=== PATIENT | male | born 1950 | race Caucasian/White ===

== ENCOUNTER 2018-01-24 12:05 | Observation (INO) | payer MEDICARE ==
[~2018-01-24] VITALS: Ht 177.8 cm; Wt 99.5 kg
[2018-01-24] MEDS ORDERED: ENOXAPARIN SODIUM INJ 100 MG/ML SYR SC STA (12:30)
[2018-01-24] MEDS ORDERED: MORPHINE SULFATE 2 MG/ML SYR IV STA (12:30)
[2018-01-24] MEDS ORDERED: SODIUM CHLORIDE 0.9% 1000ML 1,000 ML IV STA (12:30)
[2018-01-24] MEDS ORDERED: PANTOPRAZOLE 40 MG 10ML VIAL IV STA (12:30)
[2018-01-24] MEDS ORDERED: ASPIRIN 81 MG CHEW TAB PO STA (12:30)
[2018-01-24] MEDS ORDERED: ONDANSETRON HCL INJ 2 MG/ML VIAL IV STA (12:30)
[2018-01-24] MEDS ORDERED: METFORMIN HCL500 MG PO (12:42)
[2018-01-24] MEDS ORDERED: LOW DOSE ASPIRI81 MG PEG (12:42)
[2018-01-24] MEDS ORDERED: AMLODIPINE BESYL5 MG PO (12:42)
[2018-01-24] MEDS ORDERED: BENAZEPRIL HCL10 MG PO (12:42)
[2018-01-24] MEDS ORDERED: CARVEDILOL3.125 MG PO (12:42)
[2018-01-24] MEDS ORDERED: LANSOPRAZOLE30 MG PEG (12:42)
[2018-01-24 12:56] LABS: BASOPHILS % 0.4 % (0.0-1.0); EOSINOPHILS # (AUTO) 0.2 (0.0-0.4); EOSINOPHILS % 3.2 % (0.0-6.0); HEMATOCRIT 41.7 % (38.2-49.6); HEMOGLOBIN 13.7 g/dL (14.0-18.0); LYMPHOCYTES # (AUTO) 1.3 (1.0-3.2); MEAN CORPUSCULAR HEMOGLOBIN 29.1 pg (28-32); MEAN CORPUSCULAR HGB CONC 32.9 g/dL (31-35); MEAN CORPUSCULAR VOLUME 88.7 fL (81-99); MONOCYTES # (AUTO) 0.4 (0.2-0.8); MONOCYTES % 7.8 % (4.4-11.3); NEUTROPHILS # (AUTO) 3.7 (2.1-6.9); NEUTROPHILS % 65.2 % (38.7-80.0); PLATELET COUNT 229 x10e3/uL (140-360)
--- NOTE | 2018-01-24 12:57 | Diagnostic Imaging Report ---
EXAM: XR CHEST 1 VIEW DATE: 01/24/2018 12:30 PM INDICATION: Pain COMPARISON: None FINDINGS: Lines and Tubes: None Heart and Mediastinum: No acute findings. Lungs and Pleura: Minimal opacity left lung base. Bones and Soft Tissues: No acute findings. IMPRESSION: 1. Left basilar atelectasis versus pneumonia. Signed by: Dr. Tomasz Nayak MD on 01/24/2018 12:54 PM
[2018-01-24] MEDS ORDERED: DEXTROSE 50% SYRINGE 50 ML IV PRN (13:00)
[2018-01-24] MEDS ORDERED: MORPHINE SULFATE 2 MG/ML SYR IV PRN (13:00)
[2018-01-24] MEDS ORDERED: ENOXAPARIN SODIUM INJ 100 MG/ML SYR SC SCH (13:00)
[2018-01-24] MEDS ORDERED: ONDANSETRON HCL INJ 2 MG/ML VIAL IV PRN (13:00)
[2018-01-24] MEDS ORDERED: FAMOTIDINE 20 MG/2 ML VIAL IV ONE (13:00)
[2018-01-24 13:01] LABS: INR 1.05; PROTHROMBIN TIME 12.9 seconds (11.9-14.5)
[2018-01-24 13:02] LABS: PARTIAL THROMBOPLASTIN TIME 36.9 seconds (23.8-35.5)
[2018-01-24 13:04] LABS: BILIRUBIN,URINE NEGATIVE (NEGATIVE); CLARITY,URINE CLEAR (CLEAR); COLOR,URINE YELLOW (YELLOW); KETONES,URINE NEGATIVE (NEGATIVE); LEUKOCYTE ESTERASE ,URINE NEGATIVE (NEGATIVE); NITRITE,URINE NEGATIVE (NEGATIVE); PROTEIN,URINE DIPSTICK NEGATIVE (NEGATIVE); URINE UROBILINOGEN 0.2 mg/dL (0.2 - 1)
[2018-01-24 13:11] LABS: ALANINE AMINOTRANSFERASE 18 IU/L (0-55); ALBUMIN/GLOBULIN RATIO 1.2 (0.8-2.0); ALKALINE PHOSPHATASE 75 IU/L (40-150); ANION GAP 14.1 mmol/L (8-16); BLOOD UREA NITROGEN 18 mg/dL (7-26); BUN/CREATININE RATIO 21 (6-25); CALCIUM 9.8 mg/dL (8.4-10.2); CARBON DIOXIDE 26 mmol/L (22-29); CHLORIDE 105 mmol/L (98-107); CREATINE KINASE 51 IU/L (30-200); CREATININE, SERUM 0.84 mg/dL (0.72-1.25); EST GLOMERULAR FILTRATION RATE > 60 ML/MIN (60-); GLUCOSE 107 mg/dL (74-118); LIPASE 11 U/L (8-78); MAGNESIUM 1.8 MG/DL (1.3-2.1); POTASSIUM 4.1 mmol/L (3.5-5.1); SODIUM 141 mmol/L (136-145)
--- OUTSIDE RECORDS SUMMARY | 2018-01-24 13:20 | XMS REPORT ---
Author Author [facility] Address Unknown Phone Unavailable Care Team Providers Care Plastic Roller Name Role Phone LETA PEDRAZA Unavailable Unavailable Problems This patient has no known problems. Allergies, Adverse Reactions, Alerts This patient has no known allergies or adverse reactions. Medications This patient has no known medications. Results Test Description Test Time Test Comments Text Results Atomic Results Result Comments CHEST SINGLE (PORTABLE) [place] [id number] Patient Name: BRIEN SPRINGER MR #: [id number] : 1950 Age/Sex: 67/M Req #: [id number] Adm Physician: Ordered by: LETA PEDRAZA MD, MD Report #: [id number] Location: ER Room/Bed: Procedure: [id number] DX/CHEST SINGLE (PORTABLE) Exam Date: 01/24/18 Exam Time: 1245 REPORT STATUS: Signed EXAM: XR CHEST 1 VIEW DATE: 01/24/2018 12:30 PM INDICATION: Pain COMPARISON: None FINDINGS: Lines and Tubes: None Heart and Mediastinum: No acute findings. Lungs and Pleura: Minimal opacity left lung base. Bones and Soft Tissues: No acute findings. IMPRESSION: 1. Left basilar atelectasis versus pneumonia. Signed by: Dr. Tomasz Carroll MD on 01/24/2018 12:54 PM Dictated By: TOMASZ CARROLL MD 125 Transcribed By: GENNA on 01/24/181253 COPY TO: LETA PEDRAZA
[2018-01-24 13:30] LABS: THYROID STIMULATING HORMONE 1.471 uIU/mL (0.350-4.940)
--- NOTE | 2018-01-24 14:21 | Diagnostic Imaging Report ---
EXAM: US GALLBLADDER DATE: 01/24/2018 12:39 PM INDICATION: Pain COMPARISON: None FINDINGS: Overlying bowel gas obscures detail. Liver measures up proximally 17.2 cm with no distinct focal mass. Echotexture the liver is increased. Pancreatic evaluation nondiagnostic. Aorta not adequately evaluated. Right kidney measures 11.1 cm. Simple appearing 2.4 cm cyst present midportion. No hydronephrosis. Gallbladder is not distended. No gallbladder wall thickening or pericholecystic fluid identified. There is a shadowing stone in the region of the gallbladder neck. Common duct within normal limits at 0.6 cm. IMPRESSION: Shadowing gallstone gallbladder neck without distinct sonographic evidence of cholecystitis. Clinical and laboratory correlation recommended. Hepatic steatosis. Signed by: Dr. Tomasz Nayak MD on 01/24/2018 2:17 PM
[2018-01-24 15:30] VITALS: BP 180/79
[2018-01-24] MEDS ORDERED: ENOXAPARIN SODIUM INJ 100 MG/ML SYR SC ONE (15:30)
[2018-01-24] MEDS ORDERED: LEVOFLOXACIN 500MG/D5W 100ML 100 ML IV SCH (15:30)
[2018-01-24] MEDS ORDERED: CLOPIDOGREL BISULFATE 75 MG TAB PO ONE (15:30)
[2018-01-24] MEDS: INSULIN REGULAR, HUMAN 100 UNIT/1 ML 3ML VIAL SQ SCH ×2 (16:30→19:59)
[2018-01-24 16:36] VITALS: BP 187/79
--- NOTE | 2018-01-24 16:46 | History and Physical ---
Patient belongs to [facility], [place]. HOSPITAL COVERING PHYSICIAN: Dr. Roberts. HISTORY OF PRESENT ILLNESS: Mr. Hoskins is a pleasant 67-year-old gentleman with chest pain. Patient has been having low-level chest pains for years, he says. Usually, the pain is associated with eating, often onset 5 to 15 minutes after eating, a squeezing kind of pain, but it is usually low in intensity; however, the last 3 days, the patient has sited that the pain is significantly more intense. He still wonders if it is modified by eating, although he does not know if there are any specific kinds of foods that make it worse. The pain is in the subxiphoid area. He rarely has any needs to come to the physician, but this time he felt worried and came to the hospital. In the emergency room, no ST elevation RI was noted. Initial troponin was normal. BNP was normal. Patient, however, due to the worse ever and intense nature of this symptomatology, was recommended for inpatient observation. PAST MEDICAL HISTORY: Hypertension, diabetes, and possible hyperlipidemia in the past. MEDICATIONS: Outside medications include Norvasc, aspirin, benazepril, carvedilol, lansoprazole, and metformin. ALLERGIES: No known drug allergies. SOCIAL HISTORY: No smoking, no drinking, and no drugs. Patient is retired. 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 FAMILY HISTORY: Noncontributory. REVIEW OF SYSTEMS GENERAL: No weight changes. OPHTHALMOLOGIC: No double vision. ENT: No dry mouth. LUNGS: No asthma. CARDIOVASCULAR: No history of any cardiac workup. GI: No constipation. : No blood in urine. MUSCULOSKELETAL: Moderate arthritis. DERMATOLOGIC: No rashes. LABORATORY AND DIAGNOSTIC DATA: White count 5.6, 14 hemoglobin, 42 hematocrit, and 229 platelets. Potassium 4.1, 26 bicarbonate, 18 BUN, and 0.8 creatinine. LFTs unremarkable. Albumin 4.0. TSH 1.4. Chest x-ray, mildly elevated left hemidiaphragm, possible atelectasis versus pneumonitis. Gallbladder ultrasound with shadowing gallbladder lesions, possible gallstone without sonographic evidence of cholecystitis. IMPRESSION AND PLAN 1. Atypical chest pain: Treated as acute coronary syndrome. 2. Chest pain, possible associated with eating, rule out gallstone or cholecystitis. 3. Hypertension. 4. Diabetes. 5. Obesity. 6. Positive family history of early coronary artery disease. Continue cardiac enzymes. Patient will also need serial EKGs. Consideration for conservative medical management, stress test versus cardiac catheterization based on findings. Check echo and look for wall motion abnormalities. Patient will have follow up of the pain. Consideration for outpatient gallbladder evaluation, but if pain continues and does not remit, he may need further inpatient gallbladder evaluation if his heart is found to be in good standing. Continue blood pressure and diabetes maintenance. Thank you very much Dr. Roberts and Pema for allowing me a chance to participate in the care of Mr. Hoskins. Do not hesitate to contact me if I can help in anyway. Job#: [id number] PA
[2018-01-24] MEDS: CARVEDILOL 12.5 MG TAB PO SCH (17:00)
[2018-01-24 17:03] VITALS: BP 187/79
[2018-01-24 18:18] LABS: CREATINE KINASE 48 IU/L (30-200)
[2018-01-24] MEDS ORDERED: SODIUM CHLORIDE 0.9% 250ML 250 ML ONE (19:29)
[2018-01-24 20:00] VITALS: BP 156/80
[2018-01-24 21:42] VITALS: BP 156/80
[2018-01-25] VITALS: BP 139/97
[2018-01-25 00:52] LABS: CREATINE KINASE 39 IU/L (30-200)
--- NOTE | 2018-01-25 00:52 | Consultation ---
DATE OF CONSULTATION: January 24, 2018 CARDIAC CONSULTATION REASON FOR CONSULTATION: Chest pain. HISTORY: A 67-year-old gentleman who is known with hypertension for more than 2 years as well as hypercholesterolemia. He is diabetic since 2010. He is followed at [facility]. For the last few weeks, he is having "lower retrosternal pressure type of chest pain." Interestingly, worse with food, but when he does activity, he feels better. However, for the last 3 or 4 days, he is having it continuously and more repetitively. He cannot describe it, but it is pressure-like in nature. It is retrosternal, radiating to his back. There is no nausea, no vomiting, no hematemesis, no melena. He does not do vigorous activity, but he claims if he stands up and walk a little bit, it will get better. However, today it was more severe. [facility] and they advised him to present directly to the emergency room. In the emergency room, he was seen by Dr. Rodriguez, started him on Lovenox and cardiac consultation is obtained. I visited with the patient who is describing above symptoms. There is no history of orthopnea or paroxysmal nocturnal dyspnea. There is no history of syncope or presyncope. REVIEW OF SYSTEMS CARDIAC: As per acute illness. PULMONARY: No cough. No hemoptysis. GI: No hematemesis. No melena. No nausea. No vomiting. No definite GERD symptoms, although he did have for some time in the past some GERD symptoms. HEMATOLOGICAL: No easy bruising or bleeding. : No hematuria. No dysuria. MUSCULOSKELETAL. No aches. No pain. GENERAL: No fever. No chills. SOCIAL HISTORY: He is . He is a nonsmoker. Social alcohol drinker. He is retired from [employer]. HOME MEDICATIONS 1. Metformin 500 mg twice a day. 2. Coreg 6.25 mg twice a day. 3. Amlodipine/benazepril 5 and 20, one tablet a day. 4. Aspirin 81 mg a day. 5. Prevacid 30 mg a day. 6. Eye drops. ALLERGIES: NONE. PAST MEDICAL HISTORY 1. Hypertension. 2. Diabetes mellitus. 3. Hypercholesterolemia. 4. Right eye cataract surgery complicated by "dryness of the eyes." FAMILY HISTORY: Father of complications of diabetes at age 73. Mother had myocardial infarction. She was diabetic. She of chronic renal failure and complications of diabetes. All 3 brothers are diabetic and one of them had CVA and another one with PCI at young age. One sister is hypertensive. Two healthy twin daughters. PHYSICAL EXAMINATION VITALS: Height 6 feet, weight of 230 pounds, blood pressure 140/80, heart rate of 60, respiratory rate of 18, and temperature of 98 Fahrenheit. HEENT: Pupils are reactive. NECK: No elevation of jugular venous pulsation. No bruit. CHEST: Clear to auscultation and percussion. HEART: PMI 5th left intercostal space. Normal 1st and 2nd heart sounds. ABDOMEN: Soft. EXTREMITIES: No cyanosis, no clubbing, and no edema. NEUROLOGIC: Nonfocal. LAB DATA: Sodium of 141, potassium 4.1, BUN 15, creatinine 0.84, and glucose of 107. TSH of 1.47, PT of 12.9, PTT of 37 seconds. His first set of cardiac enzymes normal. EKG showed no acute changes. IMPRESSIONS 1. Chest pain, worry for unstable coronary syndrome pending myocardial infarction. 2. Hypertension. 3. Diabetes mellitus. 4. Hypercholesterolemia. 5. Strong family history of coronary artery disease. PLAN: Lengthy discussion with the patient and his . I recommended for him to take the Lovenox ordered by the emergency room physician. I recommend serial cardiac enzymes. I have recommended beta pino and Plavix and aspirin. Patient in the past had 1 statin which caused a little bit elevation of liver function tests; so, he is not eager to start statin. In fact, patient is not eager to do anything at this time point. He wants he got stomach problem and to go home. Differential diagnosis explained. Second and 3rd cardiac enzymes to be done. Depending on his 2nd cardiac enzyme results on his symptoms, further steps to be done. Options are discussed at length and explained to the patient and his . Job#: [id number] CF
[2018-01-25 04:00] VITALS: BP 146/68
[2018-01-25 06:52] LABS: BASOPHILS % 0.2 % (0.0-1.0); EOSINOPHILS # (AUTO) 0.2 (0.0-0.4); EOSINOPHILS % 3.7 % (0.0-6.0); HEMATOCRIT 39.6 % (38.2-49.6); HEMOGLOBIN 13.1 g/dL (14.0-18.0); LYMPHOCYTES # (AUTO) 1.4 (1.0-3.2); LYMPHOCYTES % 28.5 % (18.0-39.1); MEAN CORPUSCULAR HGB CONC 33.1 g/dL (31-35); MEAN CORPUSCULAR VOLUME 87.8 fL (81-99); MONOCYTES # (AUTO) 0.4 (0.2-0.8); MONOCYTES % 7.6 % (4.4-11.3); NEUTROPHILS # (AUTO) 2.9 (2.1-6.9); NEUTROPHILS % 59.6 % (38.7-80.0); PLATELET COUNT 202 x10e3/uL (140-360); RED BLOOD COUNT 4.51 x10e6/uL (4.3-5.7)
[2018-01-25 07:25] LABS: ALANINE AMINOTRANSFERASE 16 IU/L (0-55); ALBUMIN 3.5 g/dL (3.5-5.0); ALBUMIN/GLOBULIN RATIO 1.2 (0.8-2.0); ALKALINE PHOSPHATASE 67 IU/L (40-150); ANION GAP 11.3 mmol/L (8-16); BLOOD UREA NITROGEN 14 mg/dL (7-26); BUN/CREATININE RATIO 16 (6-25); CALCIUM 9.7 mg/dL (8.4-10.2); CARBON DIOXIDE 31 mmol/L (22-29); CHLORIDE 102 mmol/L (98-107); CHOL/HDL RATIO 5.1 (3.9-4.7); CHOLESTEROL 200 MD/DL (0-199); CREATININE, SERUM 0.88 mg/dL (0.72-1.25); EST GLOMERULAR FILTRATION RATE > 60 ML/MIN (60-); GLUCOSE 100 mg/dL (74-118); HDL CHOLESTEROL 39 MG/DL (40-60); LDL CHOLESTEROL 124 MG/DL (60-130); MAGNESIUM 1.8 MG/DL (1.3-2.1); PHOSPHORUS 3.1 MG/DL (2.3-4.7); POTASSIUM 4.3 mmol/L (3.5-5.1); SODIUM 140 mmol/L (136-145); TRIGLYCERIDES 183 MG/DL (0-149)
[2018-01-25] MEDS: INSULIN REGULAR, HUMAN 100 UNIT/1 ML 3ML VIAL SQ SCH ×3 (07:30→15:41)
[2018-01-25 07:50] LABS: CREATINE KINASE 34 IU/L (30-200)
[2018-01-25 07:53] VITALS: BP 129/61
[2018-01-25] MEDS: CARVEDILOL 12.5 MG TAB PO SCH (08:00)
[2018-01-25] MEDS ORDERED: ASPIRIN 81 MG ENTERIC COATED PO SCH (09:00)
[2018-01-25] MEDS ORDERED: PANTOPRAZOLE 40 MG 10ML VIAL IV SCH (09:00)
--- NOTE | 2018-01-25 14:10 | Cardiology Report ---
DATE OF STUDY: NUCLEAR CARDIAC STRESS TEST TECHNICAL DETAILS: This was a nuclear stress test, resting stress protocol. For the stress part, patient had Robert protocol. For the resting myocardial perfusion, patient given 11 millicuries of Myoview. Half an hour after injection, proper scanning and SPECT imaging were done. For the stress part, patient received 31 millicuries of Myoview at peak exercise, and after half an hour proper scanning and SPECT imaging were done. Patient tolerated the stress test. There were no issues and no complications. RESULTS A. Cardiac EKG stress test. The protocol is Robert with target heart rate of 128 per minute. 1. Patient exercised for a total of 7 minutes 31 seconds. 2. Myoview given at 6 minutes 34 seconds into exercise at peak heart rate of 128 per minute. 3. Heart rate increased from 55 to 132 per minute. 4. Blood pressure increased from 140/70 to 170/60. 5. No EKG changes. 6. No chest pain. Impression: Negative EKG cardiac stress test. B. Nuclear stress test. 1. Myocardial perfusion. a. Resting images. Resting image shows smooth distribution of isotope with the exception of mild decreased uptake in the inferior segment. b. Exercise nuclear stress test shows smooth distribution in all segments with no abnormality in the uptake. Conclusion: Normal myocardial perfusion imaging. 2. Segmental wall motion: There was normal segmental wall motion in all segments with no segmental wall motion abnormality. 3. Heart volume: End-diastolic volume of 83 and systolic volume of 26 with left ventricular ejection fraction of 69%. IMPRESSION 1. Negative cardiac stress test by electrocardiogram criteria. 2. Negative cardiac stress test by perfusion criteria. 3. Normal left ventricular systolic function with no segmental wall motion abnormality, left ventricular ejection fraction of 69%. 4. In conclusion, low risk cardiac stress test. Limitations are discussed and explained. Job#: [id number] EV [email or web address]
[2018-01-25 15:03] VITALS: BP 138/67
[2018-01-25 15:30] VITALS: BP 138/67
--- NOTE | 2018-01-25 17:05 | Discharge Summary ---
PRIMARY CARE DOCTOR: Dr. Boo Abdullahi FINAL DIAGNOSIS: Noncardiac chest pain. SECONDARY DIAGNOSES 1. Cholelithiasis. 2. Hypertension. 3. Diabetes. 4. Hyperlipidemia. CONE OPERATOR: Dr. Hanks, cardiology. PROCEDURES/STUDIES PERFORMED: Stress test. HISTORY: Per H and P. HOSPITAL COURSE: The patient was ruled out for acute myocardial infarction with 3 sets of negative troponin. The patient underwent stress test, which was unremarkable. In the ER, chest x-ray showed possible atelectasis versus pneumonia. Therefore, empirically he was given Levaquin; however, clinically, there is no sign of pneumonia. Therefore, I will go ahead and discontinue that. As far as his chest pain, this might be GI-related or specifically due to his cholelithiasis. I have recommended dietary modification, avoiding all fats, grease and oily food to see if his chest pain will improve. I have also notified his primary care doctor as well. CONDITION ON DISCHARGE: Stable. DISCHARGE MEDICATIONS: Please see medication reconciliation form. The patient was seen and examined today. SUYAPA HAMLIN M.D. Job#: [id number] cc:BOO ABDULLAHI MD
== END 2018-01-25 18:08 | disposition home or self-care (01) ==
LOC: ER 12:05 → ERHOLD 13:17 → IMCU 14:39
PROVIDERS: ADMIT Internal Medicine; ATTEND Internal Medicine
DX: R07.89 Other chest pain (principal); I10 Essential (primary) hypertension; E11.9 Type 2 diabetes mellitus without complications; E66.9 Obesity, unspecified; Z82.49 Family history of ischemic heart disease and other diseases of the circulatory system; Z83.3 Family history of diabetes mellitus; K80.20 Calculus of gallbladder without cholecystitis without obstruction; E78.5 Hyperlipidemia, unspecified; Z68.35 Body mass index [BMI] 35.0-35.9, adult
CPT/HCPCS: 36415; 71045; 76705; 78452; 80053 ×2; 80061; 81001; 82270; 82550 ×2; 82553 ×2; 82948 ×2; 83690; 83735 ×2; 83880; 84100; 84443 ×2; 84484 ×2; 85025 ×2; 85610; 85730; 87040; 87086; 93005; 93017; 93306; 99284; A9502; G0378 ×2; J1650; J1956 ×2; J2270; J2405; J7030; J7050